=== PATIENT | male | born 1950 | race Caucasian/White ===

== ENCOUNTER → 2020-04-06 15:28 | Outpatient (CLI) | payer MEDICARE, SELFPAY | PROVIDERS: PCP Family Medicine; Referring Provider Family Medicine; Visit Provider Family Medicine | DX: I87.2 Venous insufficiency (chronic) (peripheral) (principal); L97.811 Non-pressure chronic ulcer of other part of right lower leg limited to breakdown of skin; R60.0 Localized edema; L03.115 Cellulitis of right lower limb; I73.9 Peripheral vascular disease, unspecified | CPT/HCPCS: 11042; 87070; 87077; 87205; 99213; 99214 ==

== ENCOUNTER → 2020-04-12 15:22 | Outpatient (CLI) | payer MEDICARE, SELFPAY | PROVIDERS: PCP Family Medicine; Referring Provider Family Medicine; Visit Provider Family Medicine | DX: I87.2 Venous insufficiency (chronic) (peripheral) (principal); L97.811 Non-pressure chronic ulcer of other part of right lower leg limited to breakdown of skin; R60.0 Localized edema; L03.115 Cellulitis of right lower limb; I73.9 Peripheral vascular disease, unspecified | CPT/HCPCS: 11042; 87070; 87075; 87205; 99214 ==

== ENCOUNTER → 2020-04-19 10:56 | Outpatient (CLI) | payer MEDICARE, SELFPAY | PROVIDERS: PCP Family Medicine; Referring Provider Family Medicine; Visit Provider Family Medicine | DX: I87.2 Venous insufficiency (chronic) (peripheral) (principal); L97.811 Non-pressure chronic ulcer of other part of right lower leg limited to breakdown of skin; R60.0 Localized edema; I73.9 Peripheral vascular disease, unspecified | CPT/HCPCS: 11042; 99213 ==

== ENCOUNTER → 2020-04-26 10:08 | Outpatient (CLI) | payer MEDICARE, SELFPAY | PROVIDERS: PCP Family Medicine; Referring Provider Family Medicine; Visit Provider Family Medicine | DX: I87.2 Venous insufficiency (chronic) (peripheral) (principal); L97.811 Non-pressure chronic ulcer of other part of right lower leg limited to breakdown of skin; R60.0 Localized edema; I73.9 Peripheral vascular disease, unspecified | CPT/HCPCS: 99213 ==

== ENCOUNTER → 2020-05-04 10:47 | Outpatient (CLI) | payer MEDICARE, SELFPAY | PROVIDERS: PCP Family Medicine; Referring Provider Family Medicine; Visit Provider Family Medicine | DX: I87.2 Venous insufficiency (chronic) (peripheral) (principal); L97.811 Non-pressure chronic ulcer of other part of right lower leg limited to breakdown of skin; R60.0 Localized edema | CPT/HCPCS: 11042 ==

== ENCOUNTER → 2020-05-18 10:25 | Outpatient (CLI) | payer MEDICARE, SELFPAY | PROVIDERS: PCP Family Medicine; Referring Provider Family Medicine; Visit Provider Family Medicine | DX: I87.2 Venous insufficiency (chronic) (peripheral) (principal); L97.811 Non-pressure chronic ulcer of other part of right lower leg limited to breakdown of skin; R60.0 Localized edema | CPT/HCPCS: 15271; Q4137 ==

== ENCOUNTER → 2020-05-31 12:02 | Outpatient (CLI) | payer MEDICARE, SELFPAY | PROVIDERS: PCP Family Medicine; Referring Provider Family Medicine; Visit Provider Family Medicine | DX: I87.2 Venous insufficiency (chronic) (peripheral) (principal); L97.811 Non-pressure chronic ulcer of other part of right lower leg limited to breakdown of skin; R60.0 Localized edema; L08.9 Local infection of the skin and subcutaneous tissue, unspecified | CPT/HCPCS: 11042; 87070; 87075; 87077; 87147; 87186; 87205; 99214 ==

== ENCOUNTER → 2020-06-07 09:56 | Outpatient (CLI) | payer MEDICARE, SELFPAY | PROVIDERS: PCP Family Medicine; Referring Provider Family Medicine; Visit Provider Family Medicine | DX: I87.2 Venous insufficiency (chronic) (peripheral) (principal); L97.811 Non-pressure chronic ulcer of other part of right lower leg limited to breakdown of skin | CPT/HCPCS: 99212 ==

== ENCOUNTER → 2020-06-14 10:00 | Outpatient (CLI) | payer MEDICARE, SELFPAY | PROVIDERS: PCP Family Medicine; Referring Provider Family Medicine; Visit Provider Family Medicine | DX: I87.2 Venous insufficiency (chronic) (peripheral) (principal); L97.811 Non-pressure chronic ulcer of other part of right lower leg limited to breakdown of skin; R60.0 Localized edema; F17.200 Nicotine dependence, unspecified, uncomplicated | CPT/HCPCS: 15271; 99213; Q4137 ==

== ENCOUNTER → 2020-06-21 09:08 | Outpatient (CLI) | payer MEDICARE, SELFPAY | PROVIDERS: PCP Family Medicine; Referring Provider Family Medicine; Visit Provider Family Medicine | DX: I87.2 Venous insufficiency (chronic) (peripheral) (principal); L97.811 Non-pressure chronic ulcer of other part of right lower leg limited to breakdown of skin; R60.0 Localized edema | CPT/HCPCS: 97597 ==

== ENCOUNTER → 2020-06-28 13:14 | Outpatient (CLI) | payer MEDICARE, SELFPAY | PROVIDERS: PCP Family Medicine; Referring Provider Family Medicine; Visit Provider Family Medicine | DX: I87.2 Venous insufficiency (chronic) (peripheral) (principal); R60.0 Localized edema; F17.200 Nicotine dependence, unspecified, uncomplicated | CPT/HCPCS: 99213 ==

== ENCOUNTER → 2023-06-30 10:00 | Outpatient (CLI) | payer MEDICARE, SELFPAY | PROVIDERS: PCP Family Medicine; Referring Provider Registered Nurse; Visit Provider Physician Assistant | DX: L97.822 Non-pressure chronic ulcer of other part of left lower leg with fat layer exposed (principal); L97.322 Non-pressure chronic ulcer of left ankle with fat layer exposed; L97.821 Non-pressure chronic ulcer of other part of left lower leg limited to breakdown of skin; I87.2 Venous insufficiency (chronic) (peripheral); R60.0 Localized edema; E11.622 Type 2 diabetes mellitus with other skin ulcer; I50.9 Heart failure, unspecified; Z95.810 Presence of automatic (implantable) cardiac defibrillator | CPT/HCPCS: 11042; 87070; 87075; 87205; 93922; 99204; 99214 ==

== ENCOUNTER → 2023-07-07 14:45 | Outpatient (CLI) | payer MEDICARE, SELFPAY | LOC: WC 15:02 | PROVIDERS: PCP Family Medicine; Referring Provider Family Medicine; Visit Provider Surgery | DX: L97.322 Non-pressure chronic ulcer of left ankle with fat layer exposed (principal); L97.822 Non-pressure chronic ulcer of other part of left lower leg with fat layer exposed; I87.2 Venous insufficiency (chronic) (peripheral); R60.0 Localized edema; E11.622 Type 2 diabetes mellitus with other skin ulcer; I50.9 Heart failure, unspecified; Z95.0 Presence of cardiac pacemaker | CPT/HCPCS: 97597; 99214 ==

== ENCOUNTER → 2023-07-14 10:16 | Outpatient (CLI) | payer MEDICARE, SELFPAY | PROVIDERS: PCP Family Medicine; Referring Provider Family Medicine; Visit Provider Surgery | DX: L97.822 Non-pressure chronic ulcer of other part of left lower leg with fat layer exposed (principal); L97.322 Non-pressure chronic ulcer of left ankle with fat layer exposed; I87.2 Venous insufficiency (chronic) (peripheral); E11.622 Type 2 diabetes mellitus with other skin ulcer; I50.9 Heart failure, unspecified; Z95.0 Presence of cardiac pacemaker; Z79.01 Long term (current) use of anticoagulants | CPT/HCPCS: 11042; 87070; 87075; 87205; 99213 ==

== ENCOUNTER → 2023-07-31 09:49 | Outpatient (CLI) | payer MEDICARE, SELFPAY | LOC: WC 09:52 | PROVIDERS: PCP Family Medicine; Referring Provider Family Medicine; Visit Provider Surgery | DX: L97.822 Non-pressure chronic ulcer of other part of left lower leg with fat layer exposed (principal); L97.322 Non-pressure chronic ulcer of left ankle with fat layer exposed; I87.2 Venous insufficiency (chronic) (peripheral); R60.0 Localized edema; E11.622 Type 2 diabetes mellitus with other skin ulcer; I50.9 Heart failure, unspecified; Z95.0 Presence of cardiac pacemaker; Z79.01 Long term (current) use of anticoagulants | CPT/HCPCS: 11042 ==

== ENCOUNTER → 2023-08-07 13:46 | Outpatient (CLI) | payer MEDICARE, SELFPAY | LOC: WC 13:56 | PROVIDERS: PCP Family Medicine; Referring Provider Family Medicine; Visit Provider Surgery | DX: L97.322 Non-pressure chronic ulcer of left ankle with fat layer exposed (principal); L97.822 Non-pressure chronic ulcer of other part of left lower leg with fat layer exposed; I87.2 Venous insufficiency (chronic) (peripheral); R60.0 Localized edema; E11.622 Type 2 diabetes mellitus with other skin ulcer; I50.9 Heart failure, unspecified; Z95.0 Presence of cardiac pacemaker | CPT/HCPCS: 11042 ==

== ENCOUNTER → 2023-08-21 11:33 | Outpatient (CLI) | payer MEDICARE, SELFPAY | LOC: WC 12:02 | PROVIDERS: PCP Family Medicine; Referring Provider Family Medicine; Visit Provider Nurse Practitioner Family | DX: L97.322 Non-pressure chronic ulcer of left ankle with fat layer exposed (principal); L97.822 Non-pressure chronic ulcer of other part of left lower leg with fat layer exposed; I87.2 Venous insufficiency (chronic) (peripheral); R60.0 Localized edema; E11.622 Type 2 diabetes mellitus with other skin ulcer; I50.9 Heart failure, unspecified; Z87.891 Personal history of nicotine dependence | CPT/HCPCS: 11042; 87070; 87075; 87077; 87147; 87205; 99212; 99214 ==

== ENCOUNTER → 2023-08-28 11:38 | Outpatient (CLI) | payer MEDICARE, SELFPAY | LOC: WC 11:45 | PROVIDERS: PCP Family Medicine; Referring Provider Family Medicine; Visit Provider Surgery | DX: L97.322 Non-pressure chronic ulcer of left ankle with fat layer exposed (principal); L97.822 Non-pressure chronic ulcer of other part of left lower leg with fat layer exposed; I87.2 Venous insufficiency (chronic) (peripheral); R60.0 Localized edema; E11.622 Type 2 diabetes mellitus with other skin ulcer; I50.9 Heart failure, unspecified; Z95.0 Presence of cardiac pacemaker | CPT/HCPCS: 97597; 99213 ==

== ENCOUNTER → 2023-09-04 12:55 | Outpatient (CLI) | payer MEDICARE, SELFPAY | PROVIDERS: PCP Family Medicine; Referring Provider Family Medicine; Visit Provider Surgery | DX: L97.322 Non-pressure chronic ulcer of left ankle with fat layer exposed (principal); L97.822 Non-pressure chronic ulcer of other part of left lower leg with fat layer exposed; I87.2 Venous insufficiency (chronic) (peripheral); R60.0 Localized edema; E11.622 Type 2 diabetes mellitus with other skin ulcer; I50.9 Heart failure, unspecified; Z95.0 Presence of cardiac pacemaker | CPT/HCPCS: 11042 ==

== ENCOUNTER → 2023-09-16 10:48 | Outpatient (CLI) | payer MEDICARE, SELFPAY | LOC: WC 11:04 | PROVIDERS: PCP Family Medicine; Referring Provider Family Medicine; Visit Provider Surgery | DX: L97.322 Non-pressure chronic ulcer of left ankle with fat layer exposed (principal); I87.2 Venous insufficiency (chronic) (peripheral); R60.0 Localized edema; E11.622 Type 2 diabetes mellitus with other skin ulcer; I50.9 Heart failure, unspecified; Z95.0 Presence of cardiac pacemaker; Z79.01 Long term (current) use of anticoagulants | CPT/HCPCS: 11042; 99213 ==

== ENCOUNTER → 2023-09-30 11:05 | Outpatient (CLI) | payer MEDICARE, SELFPAY | LOC: WC 11:07 | PROVIDERS: PCP Family Medicine; Referring Provider Family Medicine; Visit Provider Surgery | DX: L97.322 Non-pressure chronic ulcer of left ankle with fat layer exposed (principal); I87.2 Venous insufficiency (chronic) (peripheral); R60.0 Localized edema; E11.621 Type 2 diabetes mellitus with foot ulcer; I50.9 Heart failure, unspecified; Z95.0 Presence of cardiac pacemaker; Z79.01 Long term (current) use of anticoagulants | CPT/HCPCS: 11042 ==

== ENCOUNTER → 2023-10-14 13:02 | Outpatient (CLI) | payer MEDICARE, SELFPAY | PROVIDERS: Family Provider Family Medicine; PCP Family Medicine; Referring Provider Family Medicine; Visit Provider Surgery | DX: L97.322 Non-pressure chronic ulcer of left ankle with fat layer exposed (principal); I87.2 Venous insufficiency (chronic) (peripheral); R60.0 Localized edema; R23.4 Changes in skin texture; E11.621 Type 2 diabetes mellitus with foot ulcer; I50.9 Heart failure, unspecified; Z95.0 Presence of cardiac pacemaker | CPT/HCPCS: 99213 ==

== ENCOUNTER → 2023-10-21 13:18 | Outpatient (CLI) | payer MEDICARE, SELFPAY | PROVIDERS: Family Provider Family Medicine; PCP Family Medicine; Referring Provider Family Medicine; Visit Provider Surgery | DX: I87.2 Venous insufficiency (chronic) (peripheral) (principal); L97.322 Non-pressure chronic ulcer of left ankle with fat layer exposed; L97.522 Non-pressure chronic ulcer of other part of left foot with fat layer exposed; R60.0 Localized edema; E11.65 Type 2 diabetes mellitus with hyperglycemia; I50.9 Heart failure, unspecified; E66.9 Obesity, unspecified; Z68.37 Body mass index [BMI] 37.0-37.9, adult; Z86.718 Personal history of other venous thrombosis and embolism; Z86.711 Personal history of pulmonary embolism; Z79.01 Long term (current) use of anticoagulants | CPT/HCPCS: 11042; 87070; 87075; 87077; 87186; 87205; 97597; 99213; 99214 ==

== ENCOUNTER → 2023-10-21 13:48 | Outpatient (CLI) | payer MEDICARE, SELFPAY ==
--- NOTE | 2023-10-21 13:50 | DI.RAD.S_ITS ---
PROCEDURE: XR FOOT LT MIN 3V INDICATIONS: ulcer of left lateral dorsal foot TECHNIQUE: 3 views of the foot were acquired. COMPARISON: None. FINDINGS: Bones: Plate and screw fixation of the medial midfoot. Screw fracture fragment in the navicula. Severe degenerative changes of the midfoot, most pronounced at the 1st tarsometatarsal joint. Posterior and plantar calcaneus enthesophyte. No cortical erosion or periosteal thickening to suggest osteomyelitis. No acute fracture or dislocation. Soft tissues: No definite soft tissue ulceration is seen the lateral torso foot. IMPRESSION: Chronic changes. No finding to suggest osteomyelitis. Further evaluation with MRI can be considered if clinically indicated. Dictated by: Sulema Mathis M.D. on 10/21/2023 at 17:03 Approved by: Sulema Mathis M.D. on 10/21/2023 at 17:18
== END ==
PROVIDERS: Family Provider Family Medicine; PCP Family Medicine; Referring Provider Surgery; Visit Provider Surgery
DX: L97.522 Non-pressure chronic ulcer of other part of left foot with fat layer exposed (principal); M77.32 Calcaneal spur, left foot; Z96.7 Presence of other bone and tendon implants
CPT/HCPCS: 73630; 87070; 87075; 87205

== ENCOUNTER → 2023-10-29 13:22 | Outpatient (CLI) | payer MEDICARE, SELFPAY | LOC: WC 13:23 | PROVIDERS: Family Provider Family Medicine; PCP Family Medicine; Referring Provider Family Medicine; Visit Provider Surgery | DX: L97.522 Non-pressure chronic ulcer of other part of left foot with fat layer exposed (principal); I87.2 Venous insufficiency (chronic) (peripheral); E11.621 Type 2 diabetes mellitus with foot ulcer; R60.0 Localized edema; I50.9 Heart failure, unspecified; Z95.0 Presence of cardiac pacemaker; R23.4 Changes in skin texture | CPT/HCPCS: 11042 ==

== ENCOUNTER → 2023-11-13 11:00 | Outpatient (CLI) | payer MEDICARE, SELFPAY | LOC: WC 11:01 | PROVIDERS: Family Provider Family Medicine; PCP Family Medicine; Referring Provider Family Medicine; Visit Provider Surgery | DX: L97.522 Non-pressure chronic ulcer of other part of left foot with fat layer exposed (principal); I87.2 Venous insufficiency (chronic) (peripheral); R60.0 Localized edema; E11.621 Type 2 diabetes mellitus with foot ulcer; I50.9 Heart failure, unspecified; Z95.0 Presence of cardiac pacemaker | CPT/HCPCS: 97602; 99213 ==

== ENCOUNTER → 2023-11-27 10:19 | Outpatient (CLI) | payer MEDICARE, SELFPAY | PROVIDERS: Family Provider Family Medicine; PCP Family Medicine; Referring Provider Family Medicine; Visit Provider Physician Assistant | DX: Z09 Encounter for follow-up examination after completed treatment for conditions other than malignant neoplasm (principal); Z87.2 Personal history of diseases of the skin and subcutaneous tissue; L97.821 Non-pressure chronic ulcer of other part of left lower leg limited to breakdown of skin; R60.0 Localized edema | CPT/HCPCS: 99212; 99213 ==